=== PATIENT | female | born 1980 | race Two or more races ===

== ENCOUNTER 2017-04-03 21:47 | Emergency (ER) | payer SELFPAY ==
[~2017-04-03] VITALS: Ht 167.6 cm; Wt 65.8 kg
[~2017-04-03 21:47] MED LIST: LORazepam 2MG/ML-1ML VIAL ONE
[2017-04-03] MEDS ORDERED: MIDAZOLAM DRIP 50 mg/50mL 50 ML IV ONE (21:49)
[2017-04-03] MEDS ORDERED: ETOMIDATE (2MG/ML) 20ML VIAL IV ONE ×2 (21:49→22:00)
[2017-04-03] MEDS ORDERED: SUCCINYLCHOLINE CHLORIDE 20 MG/ML 10ML VIAL IV ONE ×2 (21:49→22:00)
[2017-04-03] MEDS ORDERED: LORazepam 2MG/ML-1ML VIAL IV ONE (22:00)
[2017-04-03] MEDS ORDERED: MIDAZOLAM DRIP 50 mg/50mL 50 ML IV SCH (22:04)
[2017-04-03] MEDS ORDERED: SODIUM CHLORIDE 0.9% 1,000 ML IV ONE (22:15)
[2017-04-03] MEDS ORDERED: DEXAMETHASONE SOD PHOS 10MG/1ML VIAL INJ ONE (22:25)
[2017-04-03] MEDS ORDERED: PROPOFOL 100 ML IV SCH (22:38)
[2017-04-03] MEDS ORDERED: MANNITOL 20% SOLN 100 gm/500ml 250 ML IV ONE (22:45)
[2017-04-03] MEDS ORDERED: DEXAMETHASONE SOD PHOS 10MG/1ML VIAL INJ IV ONE (22:45)
[2017-04-03 22:46] LABS: Urine Bilirubin Negative (Negative); Urine Blood TRACE /uL (Negative); Urine Color Yellow (Yellow); Urine Glucose Normal (Normal); Urine Hyaline Cast FEW /lpf (0 - 2); Urine Ketone TRACE (Negative); Urine Mucus FEW (None Seen); Urine Nitrite Negative (Negative); Urine RBC 2 /hpf (0 - 4); Urine Squamous Epithelial Cell FEW /hpf (<5); Urine Urobilinogen Normal (Negative)
[2017-04-03 22:48] LABS: Basophils # (auto) 0 uL; Basophils % (auto) 0.2 % (0.0-2.0); Eosinophils # (auto) 0.1 uL; Lymphocytes # (auto) 2.3 uL
[2017-04-03 22:49] LABS: Eosinophils % (auto) 0.5 % (0.0-7.0); Hematocrit 29.9 % (36.0-46.0); Hemoglobin 9.5 g/dL (12.2-16.2); Lymphocytes % (auto) 19.7 % (10.0-50.0); Mean Corpuscular Hemoglobin 24.1 pg (28.0-32.0); Mean Corpuscular Hgb Conc. 31.6 g/dL (32.0-36.0); Mean Corpuscular Volume 76.4 fL (80.0-100.0); Mean Platelet Volume 7.9 fL (6.9-10.8); Monocytes % (auto) 8.3 % (0.0-12.0); Neutrophils # (auto) 8.3 uL; Neutrophils % (auto) 71.3 % (37.0-80.0); Platelet Count (auto) 290 10^3/uL (140-450); White Blood Cell 11.6 10^3/uL (4.4-10.8)
[2017-04-03] MEDS ORDERED: MANNITOL 20 % (20GM/100ML) 500 ML IV ONE (22:50)
[2017-04-03 22:57] LABS: Red Cell Distribution Width 20.7 % (11.8-14.3)
[2017-04-03 23:07] LABS: Albumin 3.5 g/dL (3.4-5.0); Alkaline Phosphatase 64 U/L (45-117); Anion Gap 10 (5-15); Aspartate Aminotransferase 21 U/L (15-37); BUN/Creatinine Ratio 23.2; Bilirubin, Total < 0.1 mg/dL (0.2-1.0); Blood Urea Nitrogen 19 mg/dL (7-18); Calcium 7.5 mg/dL (8.5-10.1); Carbon Dioxide 22 mmol/L (21-32); Chloride 108 mmol/L (98-107); GFR African American 100 mL/min; GFR Non-African American 83 mL/min; Glucose 157 mg/dL (74-106); Potassium 3.3 mmol/L (3.5-5.1); Sodium 140 mmol/L (136-145); Total Protein 7.2 g/dL (6.4-8.2)
[2017-04-03] MEDS ORDERED: LEVETIRACETAM 500 MG/5ML INJ IV ONE (23:24)
[2017-04-03] MEDS ORDERED: LEVETIRACETAM INJ 1,000 MG in SODIUM CHL 0.9% 100 ML IV ONE (23:30)
[2017-04-03] MEDS ORDERED: POTASSIUM CHL 10% (20 MEQ/15ML) 15ml ORAL SOLN GT ONE (23:30)
[2017-04-03 23:40] LABS: INR 0.95 (0.9-1.15); Partial Thromboplastin Time 26.5 sec (22.64-33.71); Prothrombin Time 10.3 sec (9.37-12.3)
[2017-04-03] MEDS ORDERED: PROPOFOL 100 ML IV ONE (23:40)
[2017-04-04 00:13] VITALS: BP 121/81
== END 2017-04-04 00:30 | disposition short-term general hospital (02) ==
LOC: ER 21:47
DX: I60.9 Nontraumatic subarachnoid hemorrhage, unspecified (principal); G92 Toxic encephalopathy; T65.91XA Toxic effect of unspecified substance, accidental (unintentional), initial encounter; Y92.89 Other specified places as the place of occurrence of the external cause
CPT/HCPCS: 31500; 36415; 36600; 51702; 70450; 71010; 80053; 80307; 80320; 81001; 82805; 84484; 85025; 85610; 85730; 96365; 96367; 96375; 99285; J0330; J1100; J1953; J2060; J2250; J2704; J7030; 94002